=== PATIENT | male | born 1980 | race Caucasian/White ===

== ENCOUNTER 2017-05-29 14:00 | Emergency (ER) | payer OTHER ==
[~2017-05-29] VITALS: Ht 182.9 cm; Wt 68.0 kg
[~2017-05-29 14:00] MED LIST: CEPH500 PO; HYDACE5 PO
[2017-05-29] MEDS ORDERED: CYCL10 PO (16:44)
== END 2017-05-29 16:47 | disposition home or self-care (01) ==
LOC: ER 14:00
DX: S16.1XXA Strain of muscle, fascia and tendon at neck level, initial encounter (principal); V43.92XA Unspecified car occupant injured in collision with other type car in traffic accident, initial encounter; Z87.891 Personal history of nicotine dependence
CPT/HCPCS: 72040; 99283

== ENCOUNTER → 2018-08-05 | Outpatient (CLI) | payer OTHER ==
[~2018-08-05] MED LIST changes: +CYCL10 PO
== END | disposition home or self-care (01) ==
LOC: PLD 15:14 → LAB SHORT 15:14
DX: L72.3 Sebaceous cyst (principal)
CPT/HCPCS: 88305